=== PATIENT | male | born 1950 | race Caucasian/White ===

== ENCOUNTER 2017-04-09 15:08 | Emergency (ER) | payer MEDICARE, OTHER ==
[~2017-04-09] VITALS: Ht 175.3 cm; Wt 75.0 kg
[~2017-04-09 15:08] MED LIST: ALBU8.5H4 IH; BUSP15 PO; CMBV14.7IN INH; DOCU250C7 PO; LORA-303 PO; MIRT30TA PO; PRAZ5CAP2 PO; RISP2TAB3 PO
--- NOTE | 2017-04-09 15:28 | ED.REPORT ---
HPI-Medical Clearance Date of Service Apr 09, 2017 ED Provider: History of Present Illness: here for medical clearance, no medication , drink sometimes 3 to 4 times in the last week. no primary care for 2 years or more. breath is at 0.0 at 1531. picked up in a domestic. normally walks with a cane. Not able to ambulate even with a cane. ETOH is negative. States had something to drink this am Nursing Notes Stated Complaint: FIT FOR RETIREMENT Nursing Notes Reviewed: Yes Allergies: Coded Allergies: Penicillins (Verified Allergy, Severe, RASH, 04/09/17) Sulfa (Sulfonamide Antibiotics) (Verified Allergy, Severe, RASH, 04/09/17) Scheduled Albut/Ipratropium-Expunged Drug, Do Not Renew (Combivent-Expunged Drug, Do Not Renew!) 1 Puff Inhaler 2 PUFFS INH QID Albuterol-Expunged Drug, Do Not Renew! (Albuterol-Expunged Drug, Do Not Renew!) 8.5 Gm Hfa.aer.ad 2 PUFFS IH QID Buspirone-Expunged Drug, Do Not Renew! (Buspirone-Expunged Drug, Do Not Renew!) 15 Mg Tablet 15 MG PO TID Docusate Sod-Expunged Drug, Do Not Renew! (Docusate Sod-Expunged Drug, Do Not Renew!) 250 Mg Cap 250 MG PO BID Lorazepam-Expunged Drug, Do Not Renew! (Lorazepam-Expunged Drug, Do Not Renew!) 1 Mg Tab 1 MG PO BID Mirtazapine-Expunged Drug, Do Not Renew! (Remeron-Expunged Drug, Do Not Renew!) 30 Mg Tablet 30 MG PO HS Prazosin Hcl-Expunged Drug, Do Not Renew! (Prazosin-Expunged Drug, Do Not Renew! ) 5 Mg Cap 2 MG PO HS Prazosin Hcl-Expunged Drug, Do Not Renew! (Prazosin-Expunged Drug, Do Not Renew! ) 5 Mg Cap 1 MG PO BID Risperidone-Expunged Drug, Do Not Renew! (Risperidone-Expunged Drug, Do Not Renew!) 2 Mg Tablet 2 MG PO BID General Time Seen by Provider: 15:27 Chief Complaint : Other (needs medical clearance) Reason for visit: Clear for correction facil Hx Obtained From: Patient Symptom Duration: Since onset Past Medical History Past Medical History Denies: Asthma Past Surgical History wrist 8 years ago Social History Alcohol Use: "Social" Drug Use: THC Other Social History: Occupation live with . Ambulatory Status Independent Review of Systems Basic Review of Systems Eyes: Vision NL, No discharge Hematologic: No bleeding Skin: No bruising, No rash, No itch Allergy / Immune: No allergy Physical Exam Initial Vital Signs Vital Signs (First) Date Time Temp Pulse Resp B/P Pulse Ox O2 Delivery O2 Flow Rate FiO2 04/09/17 15:45 37.8 136 23 156/111 96 Room Air Initial VS: Reviewed, Vital signs abnormal Head / Eyes: Atraumatic, Normocephalic, PERRL ENT: Mucous membranes moist, Conjunctiva normal, No scleral icterus Neck: Supple, Non-tender, Full range of motion Respiratory: Breath sounds normal, Clear to auscultation, No respiratory distress Cardiovascular: Regular rate & rhythm, Heart sounds normal, Intact distal pulses Abdomen / GI: Soft, Non-tender, No guarding, No rebound, No distention Back: No CVA tenderness Lymphatic: No lymphadenopathy Extremities: Vascular intact, Neuro intact, No swelling, No tenderness Skin: Warm, Dry, No cyanosis Neurologic: Alert, Oriented, Nonfocal Psychiatric: Mood/affect normal, Behavior normal, Normal thought content General/Constitutional: Awake, Alert Distress / Hydration: Positive: Distress mild Respiratory / Chest: Atraumatic, Breath sounds NL, Breath sounds = bilat, No respiratory distress Cardiovascular: Heart rate NL, Regular rhythm, Heart sounds NL, No gallop, No murmurs Abdomen: Atraumatic, Soft, Non-tender Interpretation & Diagnostics Lab Results Interpretation Result Diagram: 04/09/17 1540 04/09/17 1540 Test 04/09/17 15:40 04/09/17 17:28 04/09/17 17:40 White Blood Count 10.0th/mm3 (3.8-10.1) Red Blood Count 5.04mil/mm3 (4.40-5.80) Hemoglobin 14.3g/dL (13.8-17.2) Hematocrit 42.0% (41.0-50.0) Mean Corpuscular Volume 83.3fL (81-100) Mean Corpuscular Hemoglobin 28.4pg (27.0-35.0) Mean Corpuscular Hemoglobin Concent 34.0% (32.0-37.0) Red Cell Distribution Width 14.5% (12.3-15.4) Platelet Count 224bil/L (150-400) Neutrophils (%) (Auto) 83.6% (40-74) Lymphocytes (%) (Auto) 8.5% (14-46) Monocytes (%) (Auto) 6.8% (4-12) Eosinophils (%) (Auto) 0.7% (0-5) Basophils (%) (Auto) 0.3% (0-3) Sodium Level 136mEq/L (134-144) Potassium Level 3.7mEq/L (3.5-5.2) Chloride Level 95mEq/L (97-108) Carbon Dioxide Level 19mmol/L (18-29) Blood Urea Nitrogen 9mg/dL (8-27) Creatinine 0.75mg/dL (0.76-1.27) Estimat Glomerular Filtration Rate 110mL/min (>59) Glucose Level 121mg/dL (60-99) Calcium Level 9.9mg/dL (8.5-10.1) Magnesium Level 2.0mg/dL (1.6-2.6) Total Bilirubin 0.5mg/dL (0.0-1.2) Aspartate Amino Transf (AST/SGOT) 20U/L (0-50) Alanine Aminotransferase (ALT/SGPT) 12U/L (0-44) Alkaline Phosphatase 92U/L (25-160) Troponin T < 0.010ug/L (0.0-0.011) Total Protein 7.9g/dL (6.4-8.4) Albumin 4.8g/dL (3.4-5.0) Urine Color Yellow (YELLOW) Urine Appearance Clear (CLEAR,HAZY) Urine pH 5.0 (5.0-8.0) Urine Specific [place] 1.010 (1.003-1.035) Urine Protein Negativemg/dL (NEG,TRACE) Urine Glucose (UA) Negativemg/dL (NEGATIVE) Urine Ketones Tracemg/dL (NEGATIVE) Urine Occult Blood Negative (NEGATIVE) Urine Nitrite Negative (NEGATIVE) Urine Bilirubin Negative (NEGATIVE) Urine Urobilinogen Normalmg/dL (NORMAL) Urine Leukocyte Esterase Negative (NEGATIVE) Urine RBC 0-2/hpf (0-2) Urine WBC 0-5/hpf (0-5) Urine Epithelial Cells None/hpf (NONE-MOD) Urine Crystals None seen (NONE SEEN) Urine Bacteria Few/hpf (NONE-FEW) Urine Hyaline Casts None/lpf (NONE) Urine Granular Casts None seen (NONE SEEN) Urine Waxy Casts None seen (NONE SEEN) Urine Red Blood Cell Casts None seen (NONE SEEN) Urine White Blood Cell Casts None seen (NONE SEEN) Urine Mucus None seen (None Seen) Urine Trichomonas None seen (NONE SEEN) Urine Yeast None (NONE SEEN) Urinalysis Comment None Urine Culture Reflexed Not indicated Lactic Acid Level 1.1mmol/L (0.4-2.0) Re-Eval/Medical Decision Med Decision/Clinical Course 66 year old male [facility] with [facility] Patient normally walks with a cane but was displaying weakness and great difficulty in ambulation with jerking movements. Utoc positive for THC only. Fluids started, labs drawn imaging ordered and treated for etoh WD with 1 mg of ativan IV. Patient with excellent response. No sign of stroke or MT. Patient cleared for longterm. Vitals have normalized. Repeat lactic acid has normalized Discharge & Departure Impression: Primary Impression: Medical clearance for incarceration Additional Impression: ETOH abuse Patient Instructions: Abuse of Alcohol (ED) Additional Instructions: Your chest x-ray is normal. The brain CT is normal. Your labs are with in normal limits with the exception of the lactic acid. That is being repeated. You are fit for longterm. You will be on ativan 1 mg 3 times a day for 3 days. I will see you on Tuesday. You need to be up front on 15 minute checks. Push fluids. EDSupervising Provider for APC: Arun Davis DO copies to: [facility] Payton Li Apr 09, 2017 15:28
[2017-04-09] MEDS ORDERED: 0.9% Sodium Chloride 1,000 ML IV ONE ×3 (15:35→17:15)
[2017-04-09 15:45] VITALS: BP 156/111; PULSE 136; RESP 23; O2SAT 96
[2017-04-09 15:53] LABS: BASOPHILS % (AUTO) 0.3 % (0-3); EOSINOPHILS % (AUTO) 0.7 % (0-5); MONOCYTES % (AUTO) 6.8 % (4-12); Mean Corpuscular Hemoglobin 28.4 pg (27.0-35.0); Mean Corpuscular Volume 83.3 fL (81-100); NEUTROPHILS % (AUTO) 83.6 % (40-74); Platelet Count 224 bil/L (150-400)
--- NOTE | 2017-04-09 16:02 | DRSVH ---
PROCEDURE: CT BRAIN WITHOUT CONTRAST ([id number]) INDICATIONS: change in behavior TECHNIQUE: Noncontrast 4.5 mm thick angled axial sections acquired from the foramen magnum to the vertex, with c oronal reformats. COMPARISON: [facility], CT, BRAIN W/O CONTRAST, 09/15/2011, 18:05. FINDINGS: Image quality: Excellent. CSF spaces: Basal cisterns are patent. No extra-axial fluid collections. The ventricles are symmet morgan in size and shape. Brain: No intracranial bleeds or masses. There is cerebral volume loss for age, with resultant vent ricular and sulcal prominence. There are periventricular and deep white matter chronic small vessel ischemic changes. There is intracranial internal carotid artery atherosclerosis. Skull and face: Calvarium and visualized facial bones appear intact, without suspicious lesions. Sinuses: Visualized sinuses and mastoids are clear. IMPRESSION: No acute intracranial abnormality is found. Dictated by: Rusty Negro M.D. on 04/09/2017 at 15:58 Approved by: Rusty Negro M.D. on 04/09/2017 at 16:00
--- NOTE | 2017-04-09 16:21 | DRSVH ---
PROCEDURE: X-RAY CHEST, TWO VIEWS ([id number]) INDICATIONS: tachy TECHNIQUE: 2 views of the chest were acquired. COMPARISON: [facility], , CHEST 1VW (PORTABLE), 07/21/2012, 13:47. FINDINGS: Surgical changes and devices: None. Lungs and pleura: No pleural effusions or pneumothorax. Lungs are clear. The pulmonary vasculature is normal. Mediastinum: Mediastinal contours are normal. Heart size is normal. Bones and chest wall: No suspicious bony abnormalities. Soft tissues appear unremarkable. IMPRESSION: No acute or active disease is seen in the two-view chest. Dictated by: Rusty Negro M.D. on 04/09/2017 at 16:19 Approved by: Rusty Negro M.D. on 04/09/2017 at 16:19
[2017-04-09 16:24] VITALS: BP 151/89; PULSE 108; RESP 16; O2SAT 96
[2017-04-09 16:28] LABS: TROPONIN T < 0.010 ug/L (0.0-0.011)
[2017-04-09 17:55] VITALS: BP 166/80; PULSE 112; RESP 18; O2SAT 99
[2017-04-09 17:59] LABS: APPEARANCE,URINE CLEAR (CLEAR,HAZY); COLOR,URINE YELLOW (YELLOW)
[2017-04-09 18:00] LABS: OCCULT BLOOD,URINE NEGATIVE (NEGATIVE); UROBILINOGEN,URINE NORMAL (NORMAL)
== END 2017-04-09 17:59 ==
LOC: SED 15:08
DX: Z02.89 Encounter for other administrative examinations (principal); F10.10 Alcohol abuse, uncomplicated; Z88.0 Allergy status to penicillin; Z88.2 Allergy status to sulfonamides
CPT/HCPCS: 36415; 70450; 71020; 80053; 81000; 83605; 83735; 84484; 85025; 87040; 93005; 96361; 96374; 99285; J2060; J7030

== ENCOUNTER 2017-04-19 13:06 | Emergency (ER) | payer MEDICARE, OTHER ==
[2017-04-19 13:10] VITALS: BP 153/70; PULSE 116; RESP 23; O2SAT 99
[2017-04-19] MEDS ORDERED: ATRV10T PO (13:12)
[2017-04-19] MEDS ORDERED: MAGNESIUM CITRA PO (13:12)
[2017-04-19] MEDS ORDERED: METO25TA99 PO (13:12)
[2017-04-19] MEDS ORDERED: DOCU-41 PO (13:12)
[2017-04-19] MEDS ORDERED: LORA10CA PO (13:12)
[2017-04-19] MEDS ORDERED: [UNRECOGNIZED DRUG - OTHER] PO (13:12)
--- NOTE | 2017-04-19 13:20 | ED.REPORT ---
HPI-General Illness Date of Service Apr 19, 2017 ED Provider: Maximo Childers MD Jake is a 67-year-old male presented from long term with a chief complaint of high blood pressure. Patient reports increasing tremulousness, high blood pressure, pressure in his head. Denies other pain. Reports difficulty walking. Admits history of MA, CVA, alcohol abuse which has been treated with lorazepam and is completed. Nursing Notes Stated Complaint: HIGH BLOOD PRESSURE Chief Complaint: Substance Abuse Nursing Notes Reviewed: Yes Allergies: Coded Allergies: Penicillins (Verified Allergy, Severe, RASH, 04/19/17) Sulfa (Sulfonamide Antibiotics) (Verified Allergy, Severe, RASH, 04/19/17) codeine (Verified Allergy, Intermediate, vomiting, 04/19/17) Scheduled Albut/Ipratropium-Expunged Drug, Do Not Renew (Combivent-Expunged Drug, Do Not Renew!) 1 Puff Inhaler 2 PUFFS INH QID Albuterol-Expunged Drug, Do Not Renew! (Albuterol-Expunged Drug, Do Not Renew!) 8.5 Gm Hfa.aer.ad 2 PUFFS IH QID Atorvastatin (Lipitor) 10 Mg Tab 10 MG PO DAILY Buspirone-Expunged Drug, Do Not Renew! (Buspirone-Expunged Drug, Do Not Renew!) 15 Mg Tablet 15 MG PO TID Docusate Sod-Expunged Drug, Do Not Renew! (Docusate Sod-Expunged Drug, Do Not Renew!) 250 Mg Cap 250 MG PO BID Loratadine (Claritin) 10 Mg Capsule 10 MG PO DAILY Metoprolol Succinate ER (Metoprolol Succinate ER) 25 Mg Tab.er.24h 25 MG PO BID Mirtazapine-Expunged Drug, Do Not Renew! (Remeron-Expunged Drug, Do Not Renew!) 30 Mg Tablet 30 MG PO HS Prazosin Hcl-Expunged Drug, Do Not Renew! (Prazosin-Expunged Drug, Do Not Renew! ) 5 Mg Cap 2 MG PO HS Prazosin Hcl-Expunged Drug, Do Not Renew! (Prazosin-Expunged Drug, Do Not Renew! ) 5 Mg Cap 1 MG PO BID Risperidone-Expunged Drug, Do Not Renew! (Risperidone-Expunged Drug, Do Not Renew!) 2 Mg Tablet 2 MG PO BID Scheduled PRN ([Veggie Fiber]) 2 TSP PO DAILY PRN PRN For Constipation ([Magnesium Citra]) 240 ML PO DAILY PRN PRN CONSTIP Docusate Sodium (Colace) 100 Mg Capsule 100 MG PO BID PRN PRN For Constipation General Time Seen by MD: 13:19 Chief Complaint Other (elevated blood pressure) Past Medical History Past Medical History MA, CVA Past Surgical History wrist 8 years ago Social History Alcohol Use: "Social" Drug Use: THC Other Social History: Occupation live with . Ambulatory Status Independent Review of Systems Negative unless stated otherwise in history of present illness Physical Exam General: Well appearing, well developed, well nourished, no acute distress. Head: Atraumatic, normocephalic. Eyes: No scleral icterus or injection. No discharge. Vision grossly intact. ENT: Voice clear, hearing grossly intact. Respiratory: Regular rate and rhythm. Breath sounds present, clear to auscultation and equal bilaterally. No respiratory distress. No increased work of breathing, speaks in complete sentences. Cardiovascular: Regular rate and rhythm, without murmur, gallop or rub. No pedal edema. Gastrointestinal: Abdomen flat and non-tender without guarding or rebound. Bowel sounds normoactive. Skin: Warm and dry. Neurological: Finger-nose completed with tremulousness. Negative pronator drift. Normal gait. Cranial nerves: Vision grossly intact, PERRL, EOMI. Facial motion symmetrical, sensation to light touch over forehead, maxilla and mandible present and equal B /L. Voice clear and fluent, no drooling/pooling of saliva, uvula rises midline. Psychological: Alert and oriented. Speech appropriate, linear and logical. Behavior appropriate. Vital Signs Vital Signs Date Time Temp Pulse Resp B/P Pulse Ox O2 Delivery O2 Flow Rate FiO2 04/19/17 16:04 96 14 127/88 100 Room Air 04/19/17 16:03 96 14 127/88 100 Room Air 04/19/17 15:00 101 16 153/98 98 Room Air 04/19/17 13:10 37.0 116 23 153/70 99 Room Air Mildly elevated blood pressure Interpretation & Diagnostics Lab Results Interpretation Test 04/19/17 13:11 Hold Purple Top Tube Received (Received) Hold Blue Top Tube Received (Received) Hold [place] Top Tube Received (Received) ECG Interpretation ECG Interpretation: Sinus tachycardia with a rate of 101, negative ischemic changes Interpreted by: ED physician (Dr. childesr) CT Head Interpretation PROCEDURE: CT BRAIN WITHOUT CONTRAST ([id number]) INDICATIONS: hypertension, headache IMPRESSION: 1. No acute intracranial hemorrhage. 2. Low attenuation focus involving the right parotid is not adequately evaluated. Please consider contrast enhanced CT or MRI of the soft tissues of the neck for further evaluation on a nonemergent basis. Interpretation / Wet Read by: Interpret - Radiologist Re-Eval/Medical Decision Med Decision/Clinical Course 59-year-old male brought in from long term complaining of high blood pressure, "pressure in my head". Denies other symptoms. Patient reports a history of MA , CVA. Recently detoxed from alcohol using Ativan. Physical examination reveals a thin male, mildly tremulous like, when the gurney. Neurological examination is normal with the exception of tremulousness. Here in the emergency department his blood pressures are mildly elevated. EKG is sinus tachycardia 100.1. I discussed case with Dr. childers who recommends head CT. This returned normal with the exception of poorly visualized region of the right parotid, radiologist recommends outpatient follow-up. I discussed this with the patient. At this point I am reassured against intracranial bleeding, MA or other complications of acute hypertension. The patient states we discharged and returned to long term. His blood pressure at that time is 127/88. Advised follow-up with primary care provider. patient verbalize understanding of and consent to the plan. Discharge & Departure Primary Impression: Elevated blood pressure reading Additional Impression: Medical clearance for incarceration Disposition: Home Discharge Condition All VS Reviewed: Yes Condition: Stable Patient Instructions: Chronic Hypertension (ED) Additional Instructions: Evaluation in the emergency department for elevated blood pressure includes history, physical examination, EKG and a CT of the brain, all of which are reassuring that your elevated blood pressure is not causing an immediately dangerous condition. I believe you are stable and safe to be discharged. Portion of the CT scan was deemed by the radiologist the poorly evaluated, he recommends considering non-emergent reevaluation. Please discuss this with your primary care provider. Follow-up with your primary care provider to further evaluate and treat your hypertension Return to emergency department for new or worsening symptoms including pain in your chest, shortness of breath, neurological changes. Referrals: NOPCP (PCP) EDSupervising Provider for APC: Maximo Childers MD Attending Statement Attending attestation: I saw this patient in conjunction with Aaron Rush PA-C. I was present for all collado portions of the history taking and physical examination. I agree with the workup, evaluation, treatment and disposition. Maximo Herrera MD, MD Apr 19, 2017 13:20 Aaron Rush PA-C Apr 19, 2017 13:33
--- NOTE | 2017-04-19 14:23 | DRSVH ---
PROCEDURE: CT BRAIN WITHOUT CONTRAST ([id number]) INDICATIONS: hypertension, headache TECHNIQUE: Noncontrast 4.5 mm thick angled axial sections acquired from the foramen magnum to the vertex, with c oronal reformats. COMPARISON: [facility], CT, CT BRAIN WO CON, 04/09/2017, 15:52. FINDINGS: Image quality: Diagnostic. Brain: There is no acute intra-axial or extra-axial hemorrhage. No extra-axial fluid collection is i dentified. There is no midline shift or mass effect. The orbits are grossly unremarkable. No large areas of diffusely decreased attenuation are evident within the brain to suggest diffuse cer ebral edema. No focal parenchymal abnormality is identified. The ventricles and cortical sulci are age-appropriate. Bones: Calvarium and visualized facial bones are grossly intact. The imaged paranasal sinuses and m astoid air cells are clear. Other: There is a focus of low attenuation identified involving the imaged portion of the right parot id gland measuring 1.2 x 0.7 cm (image 1, series 2), which is not well evaluated. IMPRESSION: 1. No acute intracranial hemorrhage. 2. Low attenuation focus involving the right parotid is not adequately evaluated. Please consider c ontrast enhanced CT or MRI of the soft tissues of the neck for further evaluation on a nonemergent ba sis. Dictated by: Yordy Rodriguez M.D. on 04/19/2017 at 13:17 Approved by: Yordy Rodriguez M.D. on 04/19/2017 at 13:21
[2017-04-19 15:00] VITALS: BP 153/98; PULSE 101; RESP 16; O2SAT 98
[2017-04-19 16:03] VITALS: BP 127/88; PULSE 96; RESP 14; O2SAT 100
[2017-04-19 16:04] VITALS: BP 127/88; PULSE 96; RESP 14; O2SAT 100
== END 2017-04-19 16:05 | disposition home or self-care (01) ==
LOC: SED 13:06 → EDBD 13:06 → EDUNIT# 13:06 → SED 16:05
DX: R03.0 Elevated blood-pressure reading, without diagnosis of hypertension (principal); Z02.89 Encounter for other administrative examinations; Z88.2 Allergy status to sulfonamides; Z88.5 Allergy status to narcotic agent; Z88.0 Allergy status to penicillin; Z86.73 Personal history of transient ischemic attack (TIA), and cerebral infarction without residual deficits; I25.2 Old myocardial infarction; R25.1 Tremor, unspecified

== ENCOUNTER 2017-04-26 21:19 | Emergency (ER) | payer MEDICARE, OTHER ==
[~2017-04-26 21:19] MED LIST changes: +ATRV10T PO; +DOCU-41 PO; -LORA-303 PO; +LORA10CA PO; +MAGNESIUM CITRA PO; +METO25TA99 PO; +[UNRECOGNIZED DRUG - OTHER] PO
[2017-04-26 21:25] VITALS: BP 138/84; PULSE 74; RESP 16; O2SAT 98
--- NOTE | 2017-04-26 22:28 | ED.REPORT ---
HPI-Abd Pain M 40 and Over Date of Service Apr 26, 2017 ED Provider: Warren,Ed Pt is a 67 year old male with a history of HTN, chronic constipation, and COPD who presents to the ED complaining of abdominal pain onset today. He c/o associated nausea, and constipation onset 2 months ago. He denies any other symptoms. Pt reports that he typically takes a herbal laxative to relieve his usual constipation. Nursing Notes Stated Complaint: IMPACTED, SICK, IN PAIN Chief Complaint: Male Abdominal Pain Nursing Notes Reviewed: Yes Allergies: Coded Allergies: Penicillins (Verified Allergy, Severe, RASH, 04/19/17) Sulfa (Sulfonamide Antibiotics) (Verified Allergy, Severe, RASH, 04/19/17) codeine (Verified Allergy, Intermediate, vomiting, 04/19/17) Scheduled Albut/Ipratropium-Expunged Drug, Do Not Renew (Combivent-Expunged Drug, Do Not Renew!) 1 Puff Inhaler 2 PUFFS INH QID Albuterol-Expunged Drug, Do Not Renew! (Albuterol-Expunged Drug, Do Not Renew!) 8.5 Gm Hfa.aer.ad 2 PUFFS IH QID Atorvastatin (Lipitor) 10 Mg Tab 10 MG PO DAILY Buspirone-Expunged Drug, Do Not Renew! (Buspirone-Expunged Drug, Do Not Renew!) 15 Mg Tablet 15 MG PO TID Docusate Sod-Expunged Drug, Do Not Renew! (Docusate Sod-Expunged Drug, Do Not Renew!) 250 Mg Cap 250 MG PO BID Loratadine (Claritin) 10 Mg Capsule 10 MG PO DAILY Metoprolol Succinate ER (Metoprolol Succinate ER) 25 Mg Tab.er.24h 25 MG PO BID Mirtazapine-Expunged Drug, Do Not Renew! (Remeron-Expunged Drug, Do Not Renew!) 30 Mg Tablet 30 MG PO HS Prazosin Hcl-Expunged Drug, Do Not Renew! (Prazosin-Expunged Drug, Do Not Renew! ) 5 Mg Cap 2 MG PO HS Prazosin Hcl-Expunged Drug, Do Not Renew! (Prazosin-Expunged Drug, Do Not Renew! ) 5 Mg Cap 1 MG PO BID Risperidone-Expunged Drug, Do Not Renew! (Risperidone-Expunged Drug, Do Not Renew!) 2 Mg Tablet 2 MG PO BID Scheduled PRN ([Veggie Fiber]) 2 TSP PO DAILY PRN PRN For Constipation ([Magnesium Citra]) 240 ML PO DAILY PRN PRN CONSTIP Docusate Sodium (Colace) 100 Mg Capsule 100 MG PO BID PRN PRN For Constipation General Time Seen by MD: 22:27 Chief Complaint Abdominal pain Hx Obtained From: Patient Arrived By: Walk-in Sudden in Onset?: No Onset Occurred: 5 - 8 hours ago Symptom Duration: Since onset Location: : Diffuse Quality: Painful Radiation: : Does not radiate Severity: Current: Moderate Severity: Maximum: Moderate Recent Healthcare: Recent doctor visit Similar Sx Previous: Yes Past Medical History Past Medical History [place] x2 CVA Chronic constipation Reports: COPD, Hypertension Past Surgical History wrist 8 years ago Smoking History Former Smoker Social History Alcohol Use: "Social" Drug Use: THC Other Social History: Good social support, Occupation live with . Ambulatory Status Independent Review of Systems Constitutional: Denies: Fever Respiratory: Denies: Non-productive cough GI: Reports: Abdominal pain, Constipation, Nausea, Denies: Vomiting Complete sys rev & neg: except as marked. Physical Exam Initial Vital Signs Vital Signs (First) Date Time Temp Pulse Resp B/P Pulse Ox O2 Delivery O2 Flow Rate FiO2 04/26/17 21:25 37 74 16 138/84 98 Room Air Initial VS: Reviewed, Vital signs normal Head / Eyes: Atraumatic, Normocephalic Neck: Supple, Full range of motion Extremities: Vascular intact, Neuro intact Skin: Warm, Dry, No cyanosis Neurologic: Alert, Oriented, Nonfocal Psychiatric: Mood/affect normal, Behavior normal General/Constitutional: Awake, Alert, Cooperative Respiratory / Chest: Atraumatic, Breath sounds NL, Breath sounds = bilat Cardiovascular: Heart rate NL, Regular rhythm, Heart sounds NL Abdomen: Atraumatic, Soft, Non-tender Back: Atraumatic, Full range of motion Rectum / Perineum: Atraumatic Rectal vault is completely empty and non-tender. Interpretation & Diagnostics Lab Results Interpretation Result Diagram: 04/27/1710404/27/17104 Test 04/27/17 01:05 White Blood Count 9.2th/mm3 (3.8-10.1) Red Blood Count 4.55mil/mm3 (4.40-5.80) Hemoglobin 13.0g/dL (13.8-17.2) Hematocrit 36.1% (41.0-50.0) Mean Corpuscular Volume 79.3fL (81-100) Mean Corpuscular Hemoglobin 28.6pg (27.0-35.0) Mean Corpuscular Hemoglobin Concent 36.0% (32.0-37.0) Red Cell Distribution Width 13.5% (12.3-15.4) Platelet Count 284bil/L (150-400) Neutrophils (%) (Auto) 72.8% (40-74) Lymphocytes (%) (Auto) 16.3% (14-46) Monocytes (%) (Auto) 9.8% (4-12) Eosinophils (%) (Auto) 0.5% (0-5) Basophils (%) (Auto) 0.3% (0-3) Sodium Level 127mEq/L (134-144) Potassium Level 3.3mEq/L (3.5-5.2) Chloride Level 88mEq/L (97-108) Carbon Dioxide Level 21mmol/L (18-29) Blood Urea Nitrogen 10mg/dL (8-27) Creatinine 0.73mg/dL (0.76-1.27) Estimat Glomerular Filtration Rate 114mL/min (>59) Glucose Level 109mg/dL (60-99) Calcium Level 9.1mg/dL (8.5-10.1) Magnesium Level 1.9mg/dL (1.6-2.6) Total Bilirubin 0.4mg/dL (0.0-1.2) Aspartate Amino Transf (AST/SGOT) 21U/L (0-50) Alanine Aminotransferase (ALT/SGPT) 15U/L (0-44) Alkaline Phosphatase 82U/L (25-160) Total Protein 7.0g/dL (6.4-8.4) Albumin 4.5g/dL (3.4-5.0) Lipase 26U/L (13-60) Hold Perdue Top Tube Received (Received) Lab values outside NL range: no clinical significance. Lab Results Interpretation: Multiple minor abnormalities, none requiring specific treatment. X-Ray Abdominal Interpretation Non-specific bowel gas pattern not consistent with constipation. Interpretation / Wet Read by: Wet read ED physician CT Abd / Pelvis Interpretation IMPRESSION: No appendicitis, diverticulitis, or mechanical small bowel obstruction. Other findings above. Transmitted to the ED at 02:27 by Clemencia Quezada M.D. Study type: Abdominal CT IV contrast Interpretation / Wet Read by: Interpret - Radiologist Re-Eval/Medical Decision Med Decision/Clinical Course 67-year-old male who has had no bowel movement for a couple of days. He is concerned that he is constipated. Rectal vault was empty on physical examination. An enema produced only a small amount of stool. There is no abnormality seen on acute abdominal series. CT scan of the abdomen reveals no significant abnormality and certainly no serious or surgical disease. Source of Hx: Old records Time of Eval: 00:32 )( Re-Eval Abdomen: Soft Re-Evaluation/Progress Note: Pt rechecked. He was able to produce a mild bowel movement. All questions addressed. Time of Eval: 02:33 )( Re-Eval Abdomen: Soft Re-Evaluation/Progress Note: Pt rechecked. Informed pt of plan for discharge. Pt understands and agrees with plan for discharge. F/U instructions and RTER warnings given. All questions addressed. Counseled Regarding: Diagnosis, Lab results, Need for follow-up, When/why to return to ED Discharge & Departure Primary Impression: Generalized abdominal pain Disposition: Home Vital Signs - All Vital Signs Date Time Temp Pulse Resp B/P Pulse Ox O2 Delivery O2 Flow Rate FiO2 04/27/17 01:40 36.3 87 16 159/93 98 Room Air 04/26/17 21:25 37 74 16 138/84 98 Room Air )( All Prior VS Reviewed: Yes Condition: Stable Patient Instructions: Acute Abdominal Pain (ED) Additional Instructions: There is actually no good evidence for constipation. There is no stool in the rectal vault and the x-ray and CT scan do not show abated backup of stool. Your bowels are very interactive right now, and is not certain why. Your labs are all normal. You may have a viral intestinal infection. Do not worry about not having a bowel movement, because there is no stool there that needs to be evacuated. Follow-up with your regular doctor if you have further problems. Referrals: [facility] ([facility]P) Scribe Attestation Portions of this note were transcribed by Melvina Ledesma. I, Dr. Miranda personally performed the history, physical exam and medical decision-making; I reviewed and confirmed the accuracy of the information in the transcribed note. Signed by: Kumar Toney, 04/26/17 and 23:50. copies to: [facility] Paco Miranda MD Apr 26, 2017 22:27 Melvina Ferrer Apr 26, 2017 22:36
[2017-04-27] MEDS ORDERED: 0.9% Sodium Chloride 1,000 ML IV ONE (00:42)
[2017-04-27 01:16] LABS: BASOPHILS % (AUTO) 0.3 % (0-3); EOSINOPHILS % (AUTO) 0.5 % (0-5); MONOCYTES % (AUTO) 9.8 % (4-12); Mean Corpuscular Hemoglobin 28.6 pg (27.0-35.0); Mean Corpuscular Volume 79.3 fL (81-100); NEUTROPHILS % (AUTO) 72.8 % (40-74); Platelet Count 284 bil/L (150-400)
[2017-04-27 01:40] VITALS: BP 159/93; PULSE 87; RESP 16; O2SAT 98
[2017-04-27 01:57] LABS: Magnesium 1.9 mg/dL (1.6-2.6)
--- NOTE | 2017-04-27 11:18 | DRSVH ---
PROCEDURE: CT ABDOMEN AND PELVIS WITH CONTRAST ([id number]) INDICATIONS: 67 year-old male with abdominal pain and fullness. TECHNIQUE: After the administration of intravenous contrast, 5 mm thick sections acquired from the diaphragm to the symphysis. 5 mm coronal and sagittal reformats were acquired. For radiation dose reduction, the following was used: automated exposure control, adjustment of mA and/or kV according to patient siz e. COMPARISON: None. FINDINGS: Image quality: Excellent. ABDOMEN: Lung bases: Lung bases are clear. Heart size is normal. Solid organs: Liver and spleen are normal in size and enhancement. Gallbladder is normal. Biliary system is non dilated. Pancreas enhances normally. No adrenal nodules. Kidneys demonstrate normal size and enhancement, without hydronephrosis. Peritoneum and bowel: Stomach wall may be mildly thickened. Fluid filled small bowel and colon loops demonstrate normal wall thickness and caliber. The appendix appears normal. No free fluid or air. Nodes and vessels: No retroperitoneal or mesenteric adenopathy by size criteria. Aorta and inferior vena cava are normal in size. Severe calcification of the distal abdominal aorta and common iliac a rteries. Miscellaneous: No ventral hernias. PELVIS: Genitourinary: Bladder wall thickness is normal. Miscellaneous: No inguinal hernias or adenopathy. Bones: No suspicious bony lesions. No vertebral body compression fractures. IMPRESSION: 1. Gastric wall may be mildly thickened. There is fluid in the small bowel and colon loops which are normal in caliber and wall thickness. The CT findings suggest gastroenteritis. No evidence for small bowel obstruction. Recommend clinical correlation. 2. Normal appendix. 3. Atherosclerosis. No significant discrepancy with the mangle tender radiology preliminary report. Dictated by: Thai Serra M.D. on 04/27/2017 at 8:34 Approved by: Thai Serra M.D. on 04/27/2017 at 8:40
--- NOTE | 2017-04-27 11:18 | DRSVH ---
PROCEDURE: X-RAY ACUTE ABDOMINAL SERIES ([id number]) INDICATIONS: constipation TECHNIQUE: One view chest and two views of the abdomen were acquired. COMPARISON: [facility], , CHEST 1VW (PORTABLE), 07/21/2012, 13:47. FINDINGS: Surgical changes and devices: None. Chest: Lungs are clear. Heart size is normal. No pleural effusions. No pneumoperitoneum. Abdomen: Short air-fluid levels seen on upright examination throughout multiple bowel loops, otherwis e bowel gas pattern is normal. No pneumatosis or bowel wall thickening. No pneumoperitoneum. Bones: No suspicious bony lesions. IMPRESSION: Multiple short air-fluid levels involving bowel loops within the abdomen. Developing sma ll bowel obstruction cannot be excluded. If indicated repeat examination or CT could be performed. Dictated by: Xavier JADE Interpreted: Louann Stanford MD on 04/27/2017 at 9:06 Transcribed by: OMAIRA on 04/27/2017 at 9:07 Approved by: Louann Stanford M.D. on 04/27/2017 at 10:07
== END 2017-04-27 02:41 | disposition home or self-care (01) ==
LOC: SED 21:19
DX: R10.84 Generalized abdominal pain (principal); I10 Essential (primary) hypertension; J44.9 Chronic obstructive pulmonary disease, unspecified; I25.2 Old myocardial infarction; Z86.73 Personal history of transient ischemic attack (TIA), and cerebral infarction without residual deficits; Z87.891 Personal history of nicotine dependence; Z88.0 Allergy status to penicillin; Z88.2 Allergy status to sulfonamides; Z88.5 Allergy status to narcotic agent
CPT/HCPCS: 36415; 74022; 74177; 80053; 83690; 83735; 85025; 96360; 99284; J7030; Q9967

== ENCOUNTER 2017-05-03 05:41 | Emergency (ER) | payer MEDICARE ==
[~2017-05-03] VITALS: Ht 170.2 cm; Wt 69.1 kg
[2017-05-03 05:44] VITALS: BP 148/71; PULSE 81; RESP 18; O2SAT 95
--- NOTE | 2017-05-03 06:13 | ED.REPORT ---
HPI-Psychiatric Illness Date of Service May 03, 2017 ED Provider: Clay Irene MD Patient is a 67 year old male with a hx of schizophrenia and a previous suicide attempt via overdose who presents to the ED via EMS s/p a suicide attempt where he hooked a hose to his exhaust pipe and led it into his car. A passerby called 911 before he could start his car. When asked about his attempt, he states "I had to know if I could pull the trigger so to speak. I couldn't pull the trigger. I'm a coward." He denies auditory or visual hallucinations, homicidal ideations, nausea, or any other symptoms. He states that he also took several of his home medications in an unknown amount. He has not been taking his psychiatric medications. His PCP and psychiatrist are with the [place] [facility]. Nursing Notes Stated Complaint: SUICIDAL IDEATION Chief Complaint: Psychiatric Complaint Nursing Notes Reviewed: Yes Allergies: Coded Allergies: Penicillins (Verified Allergy, Severe, RASH, 04/19/17) Sulfa (Sulfonamide Antibiotics) (Verified Allergy, Severe, RASH, 04/19/17) codeine (Verified Allergy, Intermediate, vomiting, 04/19/17) Scheduled Albut/Ipratropium-Expunged Drug, Do Not Renew (Combivent-Expunged Drug, Do Not Renew!) 1 Puff Inhaler 2 PUFFS INH QID Albuterol-Expunged Drug, Do Not Renew! (Albuterol-Expunged Drug, Do Not Renew!) 8.5 Gm Hfa.aer.ad 2 PUFFS IH QID Atorvastatin (Lipitor) 10 Mg Tab 10 MG PO DAILY Buspirone-Expunged Drug, Do Not Renew! (Buspirone-Expunged Drug, Do Not Renew!) 15 Mg Tablet 15 MG PO TID Docusate Sod-Expunged Drug, Do Not Renew! (Docusate Sod-Expunged Drug, Do Not Renew!) 250 Mg Cap 250 MG PO BID Loratadine (Claritin) 10 Mg Capsule 10 MG PO DAILY Metoprolol Succinate ER (Metoprolol Succinate ER) 25 Mg Tab.er.24h 25 MG PO BID Mirtazapine-Expunged Drug, Do Not Renew! (Remeron-Expunged Drug, Do Not Renew!) 30 Mg Tablet 30 MG PO HS Prazosin Hcl-Expunged Drug, Do Not Renew! (Prazosin-Expunged Drug, Do Not Renew! ) 5 Mg Cap 2 MG PO HS Prazosin Hcl-Expunged Drug, Do Not Renew! (Prazosin-Expunged Drug, Do Not Renew! ) 5 Mg Cap 1 MG PO BID Risperidone-Expunged Drug, Do Not Renew! (Risperidone-Expunged Drug, Do Not Renew!) 2 Mg Tablet 2 MG PO BID Scheduled PRN ([Veggie Fiber]) 2 TSP PO DAILY PRN PRN For Constipation ([Magnesium Citra]) 240 ML PO DAILY PRN PRN CONSTIP Docusate Sodium (Colace) 100 Mg Capsule 100 MG PO BID PRN PRN For Constipation General Time Seen by MD: 06:02 Chief Complaint Suicidal attempt Hx Obtained From: Patient, Spouse Arrived By: Ambulance Onset Occurred: Just prior to arrival Immunizations: Unknown Similar Sx Previous: Yes Risk-Psychiatric Illness Suicide Risk Stratification Suicide Risk Factors - Adult: : Alcohol use: Previous attempt: Substance abuseNo: Access to firearms, Close associate suicide, Family Hx of Suicide, Prior psych admission RF Statements: Risk factors reviewed Past Medical History Past Medical History [place] x2 CVA Chronic constipation Reports: COPD, Hypertension Past Surgical History wrist 8 years ago Smoking History Former Smoker Social History Previous suicide attempt Alcohol Use: "Social" Drug Use: THC Other Social History: Good social support, Occupation live with . Ambulatory Status Independent Review of Systems GI: Denies: Nausea Psychiatric: Reports: Suicidal ideation, Denies: Hallucinations, auditory, Hallucinations, visual, Homicidal ideation Complete sys rev & neg: except as marked. Physical Exam Initial Vital Signs Vital Signs (First) Date Time Temp Pulse Resp B/P Pulse Ox O2 Delivery O2 Flow Rate FiO2 05/03/17 05:44 36.8 81 18 148/71 95 Room Air Initial VS: Reviewed Skin: Warm, Dry General/Constitutional: Awake, Alert, No acute distress Neurologic: Oriented X3, Speech NL Psychiatric: No hallucinations, Judgment/insight NL Abnormal Thinking / Perception: Positive: Suicidal, with plan Head / Eyes: Atraumatic, Normocephalic, EOMI Pupils 2 mm and reactive ENT: Mucous membranes moist Respiratory / Chest: Breath sounds NL, Breath sounds = bilat, No respiratory distress Cardiovascular: Heart rate NL, Regular rhythm, No gallop Abdomen: Atraumatic, Soft, Non-tender, BS normoactive Interpretation & Diagnostics Lab Results Interpretation Result Diagram: 05/03/17 0743 05/03/17 0743 Test 05/03/17 06:14 05/03/17 07:43 Hold Urine Received (Received) White Blood Count 8.0th/mm3 (3.8-10.1) Red Blood Count 3.94mil/mm3 (4.40-5.80) Hemoglobin 11.2g/dL (13.8-17.2) Hematocrit 33.9% (41.0-50.0) Mean Corpuscular Volume 86.0fL (81-100) Mean Corpuscular Hemoglobin 28.4pg (27.0-35.0) Mean Corpuscular Hemoglobin Concent 33.0% (32.0-37.0) Red Cell Distribution Width 14.2% (12.3-15.4) Platelet Count 236bil/L (150-400) Neutrophils (%) (Auto) 72.6% (40-74) Lymphocytes (%) (Auto) 13.3% (14-46) Monocytes (%) (Auto) 10.2% (4-12) Eosinophils (%) (Auto) 3.0% (0-5) Basophils (%) (Auto) 0.5% (0-3) Sodium Level 132mEq/L (134-144) Potassium Level 5.2mEq/L (3.5-5.2) Chloride Level 97mEq/L (97-108) Carbon Dioxide Level 21mmol/L (18-29) Blood Urea Nitrogen 13mg/dL (8-27) Creatinine 0.64mg/dL (0.76-1.27) Estimat Glomerular Filtration Rate 132mL/min (>59) Glucose Level 106mg/dL (60-99) Calcium Level 8.5mg/dL (8.5-10.1) Total Bilirubin 0.2mg/dL (0.0-1.2) Aspartate Amino Transf (AST/SGOT) 24U/L (0-50) Alanine Aminotransferase (ALT/SGPT) 20U/L (0-44) Alkaline Phosphatase 70U/L (25-160) Total Protein 5.8g/dL (6.4-8.4) Albumin 3.5g/dL (3.4-5.0) Thyroid Stimulating Hormone (TSH) 1.060uIU/mL (0.450-4.500) Hold Perdue Top Tube Received (Received) Salicylates Level 16.2ug/mL (30-250) Acetaminophen Level < 15.0ug/mL Rx (10-25) Lab Results Interpretation: Urine tox positive for THC ECG Interpretation ECG Interpretation: Sinus rate 68 No acute Normal intervals Time: 07:35 Interpreted by: ED physician Re-Eval/Medical Decision Re-Evaluation/Progress : Time of Eval: 12:28 )( Re-Eval Psychiatric: No danger to self, No danger to others Re-Evaluation/Progress Note: Discussed plan for discharge. Patient understands and agrees with plan. All questions addressed at this time. Consultation : Consulted With: optical worker Call Returned at: 12:00 Note: Patient is clear for discharge. Given resources with [place]. Counseled Regarding: Diagnosis, Lab results, Need for follow-up, When/why to return to ED Discharge & Departure Impression: Primary Impression: Depression with suicidal ideation )( Condition at Discharge: No danger to self, No danger to others, No suicidal ideation Disposition: Home Discharge Condition All VS Reviewed: Yes Condition: Improved Additional Instructions: We evaluated you for suicidal ideation in the emergency department today. At this point is felt safe for you to go home. It is very important that you follow-up immediately at the [place] walk-in clinic, they are open now, they can re- start your medications. Return to ED if you are having increasing thoughts of harming yourself. [facility] Scribe Attestation Portions of this note were transcribed by Alexei Galeano. I, Dr. Irene personally performed the history, physical exam and medical decision-making; I reviewed and confirmed the accuracy of the information in the transcribed note. Signed by: Alexei Galeano 05/03/17, 1233 copies to: [facility] Clay Browning MD May 03, 2017 06:13 ALEXEI GALEANO May 03, 2017 06:47
[2017-05-03 07:50] LABS: BASOPHILS % (AUTO) 0.5 % (0-3); MONOCYTES % (AUTO) 10.2 % (4-12); Mean Corpuscular Hemoglobin 28.4 pg (27.0-35.0); NEUTROPHILS % (AUTO) 72.6 % (40-74); Platelet Count 236 bil/L (150-400)
[2017-05-03 10:40] VITALS: BP 131/54; PULSE 67; PULSE 74; RESP 20; O2SAT 95
[2017-05-03 12:22] VITALS: BP 142/80; PULSE 72; RESP 17; O2SAT 96
[2017-05-03 12:36] VITALS: BP 142/80; PULSE 72; RESP 17; O2SAT 96
--- NOTE | 2017-05-03 14:44 | NUR ---
Mental Health Evaluation 05/03/17 Jake Gonzalez Reason for hospitalization: Suicidal ideation Precipitating problem: Pt is a 67 yo male with documented schizophrenia and bipolar disorder who presents to the ED via EMS when neighbors witnessed pt in a car with an exhaust hose attached and through the window. Pt presents remorseful, embarrassed and has present at the bedside. Pt states that he was diagnosed in 1983 with his mental illness and it has "ruined his life". 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 Pt states that he was registered with the [facility] in [place] but was not pleased with his DrDonna and did not follow up for medications. Pt has been off of his medications for a few months and feels that this has led him to having irrational thoughts of suicide. Pt does not report SI or HI at this visit, no access to firearms and has no intent of harming self or others. Pt is appropriate in his responses. Mental Status: Pt is AOX4, able to make needs known, verbalizes understanding of SW role and dc planning processes. Pt affect is WNL, appropriately makes eye contact and thought processes are logical and linear throughout assessment. Pt's recent and remote memory appear intact. Pt insight and judgment are fair. Psychiatric history: Pt reports history of schizophrenia and bipolar disorder, first diagnosed in 1983. No recent hospitalizations and no ELVIRA. Substance use history: N/A Legal history: N/A Diagnosis: F20.0- Schizophrenia (per pt report) F31- Bipolar Disorder (per pt report) Dispo: Pt is a 67 yo male with documented schizophrenia and bipolar disorder who presents to the ED via EMS when neighbors witnessed pt in a car with an exhaust hose attached and through the window. Pt presents remorseful, embarrassed and has present at the bedside. Pt states that he was diagnosed in 1983 with his mental illness and it has "ruined his life". 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 Pt states that he was registered with the [facility] in [place] but was not pleased with his DrDonna and did not follow up for medications. Pt has been off of his medications for a few months and feels that this has led him to having irrational thoughts of suicide. Pt does not report SI or HI at this visit, no access to firearms and has no intent of harming self or others. Pt is appropriate in his responses. Pt given information for [facility] Mental Health clinic walk in times. Pt verbally agrees to go to Mental Health clinic, when dc'd, to establish care to get back on medications. Pt to follow up with PCP. Ingris Kwong LMSW
== END 2017-05-03 12:37 | disposition home or self-care (01) ==
LOC: SED 05:41
DX: F32.9 Major depressive disorder, single episode, unspecified (principal); R45.851 Suicidal ideations; I10 Essential (primary) hypertension; I25.2 Old myocardial infarction; Z86.73 Personal history of transient ischemic attack (TIA), and cerebral infarction without residual deficits; Z87.891 Personal history of nicotine dependence; Z88.0 Allergy status to penicillin; Z88.2 Allergy status to sulfonamides; Z88.5 Allergy status to narcotic agent
CPT/HCPCS: 36415; 80053; 82075; 84443; 85025; 93005; 99285; G0480